=== PATIENT | male | born 1965 | race Caucasian/White ===

== ENCOUNTER 2019-05-22 06:26 | Inpatient (IN) ==
[2019-05-22] MEDS ORDERED: Albuterol 2.5 MG/3 ML NEBULIZER IH PRN (06:44)
[2019-05-22] MEDS ORDERED: Piperacillin/Tazobactam 3.375 GM in 0.9 % Sodium Chloride Mini Bag 100 ML IVPB ONE (06:45)
[2019-05-22] MEDS ORDERED: Ringers Solution, Lactated 1,000 ML IVC SCH (06:45)
[2019-05-22] MEDS ORDERED: Lidocaine HCL 4 ML Topical Solution (Laryng-O-Jet Kit Sterile Pak) TP ONE (06:53)
[2019-05-22] MEDS ORDERED: Dexmedetomidine HCl 400 MCG/100 ML MLS IVC ONE (06:58)
[2019-05-22] MEDS ORDERED: *HR* Magnesium Sulfate 1 GM/2 ML VIAL ONE (07:00)
[2019-05-22] MEDS ORDERED: Gabapentin 300 MG CAPSULE PO ONE (07:08)
[2019-05-22] MEDS ORDERED: Scopolamine Patch 1.5 MG PATCH.TD72 TD ONE (07:08)
[2019-05-22] MEDS ORDERED: *HR* Meperidine 25 MG/ML SYRINGE IVP PRN (07:09)
[2019-05-22] MEDS ORDERED: Lidocaine -MPF 2% 2 ML VIAL ONE (07:09)
[2019-05-22] MEDS ORDERED: *HR* FentaNYL (PF) 100 MCG/2 ML VIAL ONE (07:09)
[2019-05-22] MEDS ORDERED: *HR* Promethazine 25 MG/ML VIAL IVP PRN (07:09)
[2019-05-22] MEDS ORDERED: *HR* Midazolam HCl 2 MG/2 ML VIAL IVP PRN (07:09)
[2019-05-22] MEDS ORDERED: *HR* Rocuronium Bromide 50 MG/5 ML VIAL ONE ×2 (07:09→09:32)
[2019-05-22] MEDS ORDERED: Ondansetron 4 MG/2 ML VIAL IVP ONE (07:09)
[2019-05-22] MEDS ORDERED: *HR* Propofol 200 MG/20 ML VIAL IVP ONE (07:09)
[2019-05-22] MEDS ORDERED: Morphine Sulfate 2 MG/ML SYRINGE IVP PRN ×2 (07:09→11:56)
[2019-05-22] MEDS ORDERED: Dexamethasone 4 MG/ML VIAL ONE (07:15)
[2019-05-22] MEDS ORDERED: Naloxone 0.4 MG/ML INJ IVP PRN (07:47)
[2019-05-22] MEDS ORDERED: Ondansetron 4 MG/2 ML VIAL IVP PRN ×2 (07:47→11:56)
[2019-05-22] MEDS ORDERED: MORPHINE SULFATE EP SCH ×2 (08:00→08:30)
[2019-05-22] MEDS ORDERED: Morphine Sulfate 2 MG/ML SYRINGE IVP SCH (08:00)
[2019-05-22] MEDS ORDERED: SODIUM CHLORIDE 0.9% EP SCH ×2 (08:00→08:30)
[2019-05-22] MEDS ORDERED: Morphine Sulfate/PF 10mg/10mL 30 MG in 0.9 % Sodium Chloride 60 ML EP SCH (08:30)
[2019-05-22] MEDS ORDERED: *HR* PHENYLEPHRINE 1,000 MCG/10 ML SYRINGE IVP ONE (08:43)
[2019-05-22] MEDS ORDERED: EPHEDrine 50 MG/ML VIAL ONE (08:51)
[2019-05-22] MEDS ORDERED: Bupivacaine/EPI 1:200k 0.25%PF 30 ML VIAL ONE (08:59)
[2019-05-22] MEDS ORDERED: Acetaminophen IV 0 MG/0 ML INFUS..BTL ONE (09:10)
[2019-05-22] MEDS: Morphine Sulfate/PF 10mg/10mL 30 MG in 0.9 % Sodium Chloride 60 ML EP SCH (15:18)
[2019-05-22] MEDS: Ringers Solution, Lactated 1,000 ML IVC SCH (17:21)
[2019-05-23] MEDS: Ringers Solution, Lactated 1,000 ML IVC SCH ×2 (03:41→14:32)
[2019-05-23 07:46] LABS: Basophils % 0.1 %; Eosinophils % 0.1 %; Hematocrit 35.6 % (37.5-50.1); Immature Granulocytes % 0.5 % (0-4); Lymphocytes # 1.3 K/mcL (0.6-4.6); Lymphocytes % 15.3 %; Mean Corpuscular HGB Conc 33.7 g/dL (31.6-35.5); Mean Corpuscular Hemoglobin 30.9 pg (28.0-33.3); Mean Corpuscular Volume 91.8 fL (83.0-100.0); Mean Platelet Volume 8.8 fL (9.4-12.4); Monocytes # 1.1 K/mcL (0.0-1.3); Neutrophils # 6.2 K/mcL (1.6-8.9); Platelet Count 237 K/mcL (140-400); Red Blood Count 3.88 M/mcL (4.19-5.50); Red Cell Distribution Width 12.6 % (11.5-14.5); White Blood Count 8.7 K/mcL (4.3-11.1)
[2019-05-23 08:01] LABS: BUN/Creatinine Ratio 17 (6-26); Blood Urea Nitrogen 16 mg/dL (6-20); Calcium 8.8 mg/dL (8.6-10.3); Carbon Dioxide 30 mEq/L (23-29); Chloride 101 mEq/L (98-107); Glucose 91 mg/dL (70-105); Osmolality,Calculated 285 (280-300); Potassium 4.2 mEq/L (3.5-5.1); Sodium 137 mEq/L (136-145); eGFR For African Americans > 60 (> 60); eGFR For Non-African Americans > 60 (> 60)
[2019-05-23] MEDS: Morphine Sulfate/PF 10mg/10mL 30 MG in 0.9 % Sodium Chloride 60 ML EP SCH (15:49)
[2019-05-24] MEDS: Ringers Solution, Lactated 1,000 ML IVC SCH (07:13)
[2019-05-24] MEDS ORDERED: GuaiFENesin Liq 200 MG/10 ML UDC PO PRN (12:07)
[2019-05-24] MEDS ORDERED: D5% in 0.45% NACL 1,000 ML IVC SCH (12:15)
[2019-05-24] MEDS: Morphine Sulfate/PF 10mg/10mL 30 MG in 0.9 % Sodium Chloride 60 ML EP SCH (19:00)
[2019-05-25 01:27] LABS: Basophils % 0.7 %; Eosinophils # 0.3 K/mcL (0.0-0.6); Eosinophils % 4.2 %; Hematocrit 38.1 % (37.5-50.1); Hemoglobin 12.4 g/dL (12.9-16.9); Immature Granulocytes % 0.2 % (0-4); Lymphocytes % 33.5 %; Mean Corpuscular HGB Conc 32.5 g/dL (31.6-35.5); Mean Corpuscular Hemoglobin 30.5 pg (28.0-33.3); Mean Corpuscular Volume 93.6 fL (83.0-100.0); Mean Platelet Volume 8.4 fL (9.4-12.4); Monocytes # 0.9 K/mcL (0.0-1.3); Monocytes % 14.9 %; Neutrophils # 2.8 K/mcL (1.6-8.9); Platelet Count 217 K/mcL (140-400); Red Blood Count 4.07 M/mcL (4.19-5.50); Red Cell Distribution Width 11.6 % (11.5-14.5); Segmented Neutrophils % 46.5 %
[2019-05-25 03:10] LABS: BUN/Creatinine Ratio 13 (6-26); Blood Urea Nitrogen 10 mg/dL (6-20); Calcium 9.2 mg/dL (8.6-10.3); Carbon Dioxide 31 mEq/L (23-29); Chloride 99 mEq/L (98-107); Glucose 102 mg/dL (70-105); Osmolality,Calculated 283 (280-300); Potassium 4.4 mEq/L (3.5-5.1); Sodium 137 mEq/L (136-145); eGFR For African Americans > 60 (> 60); eGFR For Non-African Americans > 60 (> 60)
[2019-05-25] MEDS ORDERED: *HR* OxyCODONE Immed Rel 5 MG TABLET PO PRN (11:22)
[2019-05-25] MEDS ORDERED: Acetaminophen 325 MG TABLET PO PRN (11:22)
[2019-05-25] MEDS: Ringers Solution, Lactated 1,000 ML IVC SCH (19:25)
[2019-05-26 11:24] VITALS: BP 111/73
== END 2019-05-26 13:10 | disposition home or self-care (01) | DRG 331 ==
LOC: SAMDAY 06:26 → 3ANU 11:55
PROVIDERS: ADMIT Surgery; ATTEND Surgery